=== PATIENT | male | born 1955 | race Caucasian/White ===

== ENCOUNTER 2018-03-23 14:47 | Observation (INO) ==
[2018-03-23 15:40] LABS: Chloride 106 meq/L (98-107); Potassium 3.6 meq/L (3.5-5.1); Sodium 141 meq/L (136-145)
[2018-03-23 15:44] LABS: Albumin 3.4 g/dL (3.4-5.0); Anion Gap 10 meq/L (5-15); Calcium 8.3 mg/dL (8.5-10.1); Carbon Dioxide 25.4 meq/L (21.0-32.0); Glucose,Random 85 mg/dL (74-106)
[2018-03-23 15:45] LABS: Blood Urea Nitrogen 12 mg/dL (7-18)
[2018-03-23 15:46] LABS: INR 1.2 Ratio; Prothrombin Time 11.7 sec (9.8-11.6)
[2018-03-23 15:47] LABS: Alanine Aminotransferase 42 U/L (12-78); Aspartate Aminotransferase 43 U/L (15-37); Glomerular Filtration Rate 47 mL/min (>89)
[2018-03-23 15:49] LABS: Total Protein 6.9 g/dL (6.4-8.2)
[2018-03-23 15:50] LABS: Alkaline Phosphatase 85 U/L (45-117)
[2018-03-23 15:51] LABS: Baso % (Auto) 0.4 % (0.0-2.0); Eos # (Auto) 0.1 th/mm3 (0.0-0.4); Eos % (Auto) 2.4 % (0.0-4.0); Hematocrit 38.3 % (39.0-51.0); Hemoglobin 12.5 gm/dL (13.0-17.0); Lymph # (Auto) 0.6 th/mm3 (1.0-4.8); Lymph % (Auto) 14.3 % (9.0-44.0); Mean Corpuscular HGB Conc 32.7 % (32.0-36.0); Mean Corpuscular Hemoglobin 28.9 pg (27.0-34.0); Mean Corpuscular Volume 88.5 fL (80.0-100.0); Mean Platelet Volume 6.9 fL (7.0-11.0); Mono # (Auto) 0.4 th/mm3 (0.0-0.9); Mono % (Auto) 9.3 % (0.0-8.0); Neut # (Auto) 3.4 th/mm3 (1.8-7.7); Neut % (Auto) 73.6 % (16.0-70.0); Platelet Count 198 th/mm3 (150-450); Red Blood Count 4.32 mil/mm3 (4.50-5.90); Red Cell Distribution Width 14.6 % (11.6-17.2); White Blood Count 4.5 th/mm3 (4.0-11.0)
--- NOTE | 2018-03-23 15:55 | CT ---
EXAM DATE: 03/23/2018 3:52 PM EDT AGE/SEX: 62 years / Male INDICATIONS: Trauma. Dizziness and seizure like activity today. CLINICAL DATA: This is the patient's initial encounter. Patient reports that signs and symptoms have been present for 1 day and indicates a pain score of 0/10. MEDICAL/SURGICAL HISTORY: Diabetes mellitus type II. Hypertension. CABG. RADIATION DOSE: 64.31 CTDI (mGy) COMPARISON: No prior exams available for comparison. TECHNIQUE: CT of the head without contrast. Using automated exposure control and adjustment of the mA and/or kV according to patient size, radiation dose was kept as low as reasonably achievable to ob tain optimal diagnostic quality images. DICOM format image data is available electronically for revi ew and comparison. FINDINGS: Cerebrum: The ventricles are normal for age. No evidence of midline shift, mass lesion, hemorrhage or acute infarction. No extraaxial fluid collections are seen. Posterior Fossa: The cerebellum and brainstem are intact. The 4th ventricle is midline. The cerebe llopontine angle is unremarkable. Extracranial: The visualized portion of the orbits is intact. Skull: The calvaria is intact. No evidence of skull fracture. CONCLUSION: 1. Negative CT Head non contrast. . Electronically signed by: Vicky Nieves MD 03/23/2018 3:53 PM EDT
--- NOTE | 2018-03-23 16:10 | CT ---
EXAM DATE: 03/23/2018 4:00 PM EDT AGE/SEX: 62 years / Male INDICATIONS: Trauma. Dizziness with seizure like activity today. CLINICAL DATA: This is the patient's initial encounter. Patient reports that signs and symptoms have been present for 1 day and indicates a pain score of 0/10. MEDICAL/SURGICAL HISTORY: Hypertension. Diabetes mellitus type II. CABG. RADIATION DOSE: 26.64 CTDI (mGy) COMPARISON: No prior exams available for comparison. TECHNIQUE: Contiguous axial images were obtained using helical multirow detector technique. The vol umetric data was post-processed with multiplanar reconstruction in oblique axial, sagittal, and coron al planes. Using automated exposure control and adjustment of the mA and/or kV according to patient s ize, radiation dose was kept as low as reasonably achievable to obtain optimal diagnostic quality luciano ges. DICOM format image data is available electronically for review and comparison. FINDINGS: Vertebrae: Normal vertebral body height. Alignment: There is loss of the normal cervical lordosis with overall straightening of the cervical spine. C2-3: Uncovertebral joint hypertrophy and moderate bilateral facet degenerative change. Moderate enriqueta ateral neuroforaminal stenosis. C3-4: The bony spinal canal is normal in size. No evidence of disc bulge or herniation. The neural foramina are bilaterally patent. C4-5: Disc desiccation and disc space narrowing. Uncovertebral joint hypertrophy and mild facet dege nerative change. Moderate to severe bilateral neuroforaminal stenosis. There is a calcified posterior osteophyte projecting into the left aspect of the spinal canal without causing significant narrowing . C5-6: Disc desiccation and disc space narrowing with a small posterior calcified disc osteophyte com plex and uncovertebral joint hypertrophy. Mild bilateral neuroforaminal narrowing. C6-7: Disc desiccation and disc space narrowing with posterior disc osteophyte complex and uncoverte bral joint hypertrophy. Mild bilateral neuroforaminal narrowing. C7-T1: Severe degenerative changes at the right facet joints. CONCLUSION: 1. No acute abnormality noted. Degenerative changes as noted above. Electronically signed by: Vicky Nieves MD 03/23/2018 4:09 PM EDT
[2018-03-23 16:13] LABS: Bilirubin,Urine Negative (Negative); Clarity,Urine Clear (Clear); Color,Urine Yellow (Yellw/Straw); Glucose,Urine (UA) Negative (Negative); Leukocyte Esterase,Urine Negative (Negative); Nitrite,Urine Negative (Negative); PH,Urine 5.5 (5.0-8.5); Urobilinogen,Urine 0.2 mg/dL (Less than 2)
[2018-03-23 16:30] LABS: Collection Time,Urine 1540 hours; WBC,Urine 0-5 /hpf (0-5)
--- NOTE | 2018-03-23 16:53 | ED ---
HPI General Chief complaint: Seizure Stated complaint: Evac/seizures History of Present Illness HPI narrative: Patient is a 62 year old male history of DM and CABGx4 presents to the ER for evaluation after "seizure". patient states he was out returning a television when he felt very weak and like he was going to pass out. Then he lowered himself to the ground and the next thing he knew the paramedics were over him. EMS described that the patient was posturing initially and was having tonic clonic movements for approximately 3 minutes. Patient does not recall this. No history of previous seizures. No chest pain, no sob, no n/v/d , no palpitations. Patient states this has never happened to him before. BGL by ems was 78. Patient states he was feeling dizzy on and off all day today. Related Data Home Medications Medication Instructions Recorded Confirmed aspirin [Aspir-Low] 81 mg PO DAILY 03/23/18 03/23/18 atenolol 25 mg PO DAILY 03/23/18 03/23/18 atorvastatin 40 mg PO DAILY 03/23/18 03/23/18 losartan 25 mg PO DAILY 03/23/18 03/23/18 kcnfnnxazgdi-oqd-ijua-FA-vit K 1 tab PO DAILY 03/23/18 03/23/18 [Multi-Day Plus Minerals] vitamin B complex 1 cap PO DAILY 03/23/18 03/23/18 Previous Rx's Medication Instructions Recorded furosemide 10 mg PO DAILY #30 tab 03/24/18 gabapentin 200 mg PO TID 30 Days #180 cap 03/24/18 metformin 500 mg PO DAILY #30 tab 03/24/18 Allergies Allergy/AdvReac Type Severity Reaction Status Date / Time No Known Allergies Allergy Unverified 03/23/18 14:49 Review of Systems ROS: all other systems reviewed are negative [facility] Medical History Medical History Diabetes (Acute) History of diabetic neuropathy (Acute) History of high cholesterol (Acute) History of hypertension (Acute) Surgical History Surgical History Hx of CABG (Acute) Social History Social History Substance History: No History of Abuse Second Hand Smoke Exposure: Yes Smoking Status: Former smoker How Often Do You Have a Drink Containing Alcohol: 2 to 4 times a month Recent Travel in [facility] within the Last 8 Weeks: No Recent Out of Country Travel within the Last 8 Weeks: No Immunization History Tetanus Immunization: Unsure Hx Influenza Vaccine This Season: No Exam Narrative Exam Narrative: GENERAL: WD/WN overweight pleasant male in NAD. SKIN: Focused skin assessment warm/dry. Healed vein harvesting scars on RLE. Sternotomy scar. Both well healed. HEAD: Atraumatic. Normocephalic. EYES: Pupils equal and round. No scleral icterus. No injection or drainage. ENT: No nasal bleeding or discharge. Mucous membranes pink and moist. NECK: Trachea midline. No JVD. CARDIOVASCULAR: Regular rate and rhythm. No murmur appreciated. RESPIRATORY: No accessory muscle use. Clear to auscultation. Breath sounds equal bilaterally. GASTROINTESTINAL: Abdomen soft, non-tender, nondistended. Hepatic and splenic margins not palpable. MUSCULOSKELETAL: No obvious deformities. No clubbing. No cyanosis. No edema. NEUROLOGICAL: Awake and alert. CN 2-12 grossly intact and non-focal. 5/5 strength in all four extremities. Cerebellar testing normal. PSYCHIATRIC: Appropriate mood and affect; insight and judgment normal. Course Initial Documented Vital Signs Temperature 99.1 F 03/23/18 14:53 Pulse Rate 93 H 03/23/18 14:53 Respiratory Rate 16 03/23/18 14:53 Blood Pressure 140/70 03/23/18 14:53 Pulse Oximetry 100 03/23/18 14:53 Last Documented Vital Signs Temperature 97.8 F 03/24/18 12:00 Pulse Rate 68 03/24/18 12:00 Respiratory Rate 16 03/24/18 12:00 Blood Pressure 126/66 03/24/18 12:00 Pulse Oximetry 97 03/24/18 12:00 Medical Decision Making MDM Narrative Medical decision making narrative: Patient roomed in ER, certainly not postictal on arrival. Syncope vs seizure predominate. Arrythmia is a possibility as well. Initial workup in ed, EKG, CXR, ct head, ct cervspine, CBC , CMP, Trop all negative. Discussed observation status for consideration of EEG , Echo, cardiac monitoring. Patient agreeable. Medical Screen Exam Complete: Yes Emergency Medical Condition: Yes Differential Diagnosis Differential Diagnosis: Seizure, arrhythmia, CHF, electrolyte abnormality, head injury, neck injury. Lab Data Result diagrams: 03/23/18 15:25 03/23/18 15:25 Lab Results 03/23/18 03/23/18 03/23/18 Range/Units 15:25 15:25 15:25 CBC w Diff Auto diff final WBC 4.5 (4.0-11.0) th/mm3 RBC 4.32 L (4.50-5.90) mil/mm3 Hgb 12.5 L (13.0-17.0) gm/dL Hct 38.3 L (39.0-51.0) % MCV 88.5 (80.0-100.0) fL MCH 28.9 (27.0-34.0) pg MCHC 32.7 (32.0-36.0) % RDW 14.6 (11.6-17.2) % Plt Count 198 (150-450) th/mm3 MPV 6.9 L (7.0-11.0) fL Neut % (Auto) 73.6 H (16.0-70.0) % Lymph % (Auto) 14.3 (9.0-44.0) % [place] % (Auto) 9.3 H (0.0-8.0) % Eos % (Auto) 2.4 (0.0-4.0) % Baso % (Auto) 0.4 (0.0-2.0) % Neut # (Auto) 3.4 (1.8-7.7) th/mm3 Lymph # (Auto) 0.6 L (1.0-4.8) th/mm3 [place] # (Auto) 0.4 (0.0-0.9) th/mm3 Eos # (Auto) 0.1 (0.0-0.4) th/mm3 Baso # (Auto) 0.0 (0.0-0.2) th/mm3 WBC Differential . Differential Comment . PT 11.7 H (9.8-11.6) sec INR 1.2 Ratio APTT 25.0 (24.3-30.1) sec Sodium 141 (136-145) meq/L Potassium 3.6 (3.5-5.1) meq/L Chloride 106 (98-107) meq/L Carbon Dioxide 25.4 (21.0-32.0) meq/L Anion Gap 10 (5-15) meq/L BUN 12 (7-18) mg/dL Creatinine 1.50 H (0.60-1.30) mg/dL Estimated GFR 47 L (>89) mL/min POC Glucose (68-110) mg/dl Random Glucose 85 (74-106) mg/dL Calcium 8.3 L (8.5-10.1) mg/dL Total Bilirubin 0.4 (0.2-1.0) mg/dL AST 43 H (15-37) U/L ALT 42 (12-78) U/L Alkaline Phosphatase 85 (45-117) U/L Troponin I Less than 0.02 L (0.02-0.05) ng/mL Total Protein 6.9 (6.4-8.2) g/dL Albumin 3.4 (3.4-5.0) g/dL Ur Collection Type Urine Color (Yellw/Straw) Urine Clarity (Clear) Urine pH (5.0-8.5) Ur Specific [place] (1.002-1.035) Urine Protein (Neg-Trace) mg/dL Urine Glucose (UA) (Negative) mg/dL Urine Ketones (Negative) mg/dL Urine Occult Blood (Negative) Urine Nitrate (Negative) Urine Bilirubin (Negative) Urine Urobilinogen (Less than 2) mg/dL Ur Leukocyte Esterase (Negative) Urine WBC (0-5) /hpf Ur Microscopic Review Urine Culture Comments Urine Collection Time hours 03/23/18 03/23/18 03/24/18 Range/Units 15:40 19:45 07:14 CBC w Diff WBC (4.0-11.0) th/mm3 RBC (4.50-5.90) mil/mm3 Hgb (13.0-17.0) gm/dL Hct (39.0-51.0) % MCV (80.0-100.0) fL MCH (27.0-34.0) pg MCHC (32.0-36.0) % RDW (11.6-17.2) % Plt Count (150-450) th/mm3 MPV (7.0-11.0) fL Neut % (Auto) (16.0-70.0) % Lymph % (Auto) (9.0-44.0) % [place] % (Auto) (0.0-8.0) % Eos % (Auto) (0.0-4.0) % Baso % (Auto) (0.0-2.0) % Neut # (Auto) (1.8-7.7) th/mm3 Lymph # (Auto) (1.0-4.8) th/mm3 [place] # (Auto) (0.0-0.9) th/mm3 Eos # (Auto) (0.0-0.4) th/mm3 Baso # (Auto) (0.0-0.2) th/mm3 WBC Differential Differential Comment PT (9.8-11.6) sec INR Ratio APTT (24.3-30.1) sec Sodium (136-145) meq/L Potassium (3.5-5.1) meq/L Chloride (98-107) meq/L Carbon Dioxide (21.0-32.0) meq/L Anion Gap (5-15) meq/L BUN (7-18) mg/dL Creatinine (0.60-1.30) mg/dL Estimated GFR (>89) mL/min POC Glucose 86 (68-110) mg/dl Random Glucose (74-106) mg/dL Calcium (8.5-10.1) mg/dL Total Bilirubin (0.2-1.0) mg/dL AST (15-37) U/L ALT (12-78) U/L Alkaline Phosphatase (45-117) U/L Troponin I Less than 0.02 L (0.02-0.05) ng/mL Total Protein (6.4-8.2) g/dL Albumin (3.4-5.0) g/dL Ur Collection Type Clean catch Urine Color Yellow (Yellw/Straw) Urine Clarity Clear (Clear) Urine pH 5.5 (5.0-8.5) Ur Specific [place] 1.020 (1.002-1.035) Urine Protein Negative (Neg-Trace) mg/dL Urine Glucose (UA) Negative (Negative) mg/dL Urine Ketones Negative (Negative) mg/dL Urine Occult Blood Negative (Negative) Urine Nitrate Negative (Negative) Urine Bilirubin Negative (Negative) Urine Urobilinogen 0.2 (Less than 2) mg/dL Ur Leukocyte Esterase Negative (Negative) Urine WBC 0-5 (0-5) /hpf Ur Microscopic Review Microscopic reviewed Urine Culture Comments Culture not ind Urine Collection Time 1540 hours Imaging Data Radiologist's impression: Cervical Spine CT 03/23/18 15:18 CONCLUSION: 1. No acute abnormality noted. Degenerative changes as noted above. Head CT 03/23/18 15:18 CONCLUSION: 1. Negative CT Head non contrast. . Discharge Plan Discharge Disposition Patient Disposition: 01 Discharge Home Discharge Condition Condition: Stable Discharge Order Discharge Orders: Discharge Order (Routine); Ordered 03/24/18 Ordered By: Margarito Salazar Discharge Details Anticipated Discharge Date: 03/24/18 Discharge Comment: Stop Glimepiride and start Metformin 500mg once a day. Discuss diabetic meds with your Marketing Services Rep. Check and keep a log of blood glucose twice a day and show it to your Marketing Services Rep. Diagnosis: Syncope Physicians Team ED Provider: Ruddy Tejeda Primary Care Provider: Tamara Patel Attending Provider: Margarito Salazar Status ED Status: Left Department Discharge Information Discharge Date/Time: 03/23/18 19:02
[2018-03-23] MEDS ORDERED: Bisacodyl 10 MG Supp RECTAL PRN (17:24)
[2018-03-23] MEDS ORDERED: Acetaminophen 325 MG Tablet PO PRN (17:30)
--- NOTE | 2018-03-24 12:39 | P.HP ---
History of Present Illness Service: Hospitalist Primary Care Physician: Tamara Patel MD Chief Complaint: Syncope History of Present Illness: Mr. Davis is a pleasant 62-year-old male with a history of CAD status post CABG 4, diabetes mellitus who presented to the emergency department on 03/23/2018 after he had a couple episodes at a store. Patient recently bought his first house and has been overwhelmed due to his new house. He reports that he has not been eating or drinking well. At the store yesterday , he felt dizzy and lightheadedness. He does not remember much after that. He remembers waking up in the ambulance. He denies any loss of bowel or bladder control. No tongue biting. He was mildly confused after this episode. He denies any chest pain, shortness of breath, fever or chills. No changes in bowel or bladder habits. At the time of this interview on 03/24/2018, patient reports feeling well and back to his baseline. He is able to ambulate well without any symptoms. Past medical history: CAD status post CABG 4, diabetes mellitus, hypertension, hyperlipidemia Past surgical history: CABG 4 Social history: He quit smoking in 2015. He drinks socially. Family history: Father had heart disease. - Diagnosis (1) Syncope Review of Systems All other systems reviewed negative except as stated in [facility] - History History Provided By: Patient - Medical History Medical History: Medical History (Last Updated 03/23/18 @ 14:53 by Stephanie Gilmore RN) Diabetes History of diabetic neuropathy History of high cholesterol History of hypertension - Surgical History Surgical History: Surgical History (Last Updated 03/23/18 @ 14:53 by Stephanie Gilmore RN) Hx of CABG - Tobacco History Second Hand Smoke Exposure: Yes Tobacco Use In Past 30 Days: No Smoking Status: Former smoker - Alcohol History How Often Do You Have a Drink Containing Alcohol: 2 to 4 times a month - Substance Use History Substance History: No History of Abuse - Travel History Recent Travel in the [place] Within the Last 8 Weeks: No Recent Travel Out of the Country Within the Last 8 Weeks: No - Immunization History Tetanus Immunization: Unsure Hx Influenza Vaccine This Season: No Medications and Allergies Active Medications: Active Medications Acetaminophen (Tylenol) 650 mg PO Q4H PRN PRN Reason: Headache, fever, pain 1-5 Al Hydroxide/Mg Hydroxide (Milk Of Jorge Escobedoq) 30 ml PO Q12H PRN PRN Reason: Mild Constipation Bisacodyl (Dulcolax Supp) 10 mg RECTAL DAILY PRN PRN Reason: SEVERE CONSITIPATION Lactulose (Lactulose Liq) 30 ml PO DAILY PRN PRN Reason: SEVERE CONSITIPATION Sennosides (Senokot) 17.2 mg PO Q12H PRN PRN Reason: Moderate Constipation Allergies Allergy/AdvReac Type Severity Reaction Status Date / Time No Known Allergies Allergy Unverified 03/23/18 14:49 Home Medications Medication Instructions Recorded Confirmed Type aspirin [Aspir-Low] 81 mg PO DAILY 03/23/18 03/23/18 History atenolol 25 mg PO DAILY 03/23/18 03/23/18 History atorvastatin 40 mg PO DAILY 03/23/18 03/23/18 History losartan 25 mg PO DAILY 03/23/18 03/23/18 History ftyrzhueclkq-utv-ucan-FA-vit K 1 tab PO DAILY 03/23/18 03/23/18 History [Multi-Day Plus Minerals] vitamin B complex 1 cap PO DAILY 03/23/18 03/23/18 History Exam Vital signs: Vital Signs 03/23/18 14:53 03/23/18 14:59 03/23/18 15:30 Temperature 99.1 F Pulse Rate 93 H 72 Respiratory Rate 16 18 Blood Pressure 140/70 140/65 Pulse Oximetry 100 95 95 03/23/18 16:57 03/23/18 20:00 03/24/18 00:00 Temperature 96.4 F L 97.1 F L Pulse Rate 70 69 70 Respiratory Rate 18 18 18 Blood Pressure 123/65 108/55 L 103/50 L Pulse Oximetry 98 98 98 03/24/18 04:00 03/24/18 08:00 Temperature 98.4 F 96.5 F L Pulse Rate 60 64 Respiratory Rate 18 17 Blood Pressure 118/56 L 129/68 Pulse Oximetry 100 98 Intake & Output 03/23/18 03/24/18 03/24/18 18:59 06:59 18:59 Weight 117.934 kg 117.9 kg Other: # Voids 2 Weight On Admission 117.934 kg Narrative: GENERAL: This is a well-nourished, well-developed patient, in no apparent distress. SKIN: No rashes, ecchymoses or lesions. Warm and dry. HEAD: Atraumatic. Normocephalic. No temporal or scalp tenderness. EYES: Pupils equal round and reactive. No injection or drainage. ENT: Nose without bleeding, purulent drainage or septal hematoma. Airway patent. NECK: Trachea midline. No lymphadenopathy. Supple, nontender, no meningeal signs. CARDIOVASCULAR: Regular rate and rhythm without murmurs, gallops, or rubs. No JVD. RESPIRATORY: Clear to auscultation. Breath sounds equal bilaterally. No wheezes , rales, or rhonchi. GASTROINTESTINAL: Abdomen soft, non-tender, nondistended. No guarding. MUSCULOSKELETAL: Extremities without clubbing, cyanosis, or edema. NEUROLOGICAL: Awake and alert. Cranial nerves II through XII intact. No focal neurological deficits. Normal speech. Results - Labs CBC & Chem 7: 03/23/18 15:25 03/23/18 15:25 Labs: Laboratory Results - last 24 hr 03/23/18 03/23/18 03/23/18 15:25 15:25 15:25 CBC w Diff Auto diff final WBC 4.5 RBC 4.32 L Hgb 12.5 L Hct 38.3 L MCV 88.5 MCH 28.9 MCHC 32.7 RDW 14.6 Plt Count 198 MPV 6.9 L Neut % (Auto) 73.6 H Lymph % (Auto) 14.3 [place] % (Auto) 9.3 H Eos % (Auto) 2.4 Baso % (Auto) 0.4 Neut # (Auto) 3.4 Lymph # (Auto) 0.6 L [place] # (Auto) 0.4 Eos # (Auto) 0.1 Baso # (Auto) 0.0 WBC Differential . Differential Comment . PT 11.7 H INR 1.2 APTT 25.0 Sodium 141 Potassium 3.6 Chloride 106 Carbon Dioxide 25.4 Anion Gap 10 BUN 12 Creatinine 1.50 H Estimated GFR 47 L POC Glucose Random Glucose 85 Calcium 8.3 L Total Bilirubin 0.4 AST 43 H ALT 42 Alkaline Phosphatase 85 Troponin I Less than 0.02 L Total Protein 6.9 Albumin 3.4 Ur Collection Type Urine Color Urine Clarity Urine pH Ur Specific [place] Urine Protein Urine Glucose (UA) Urine Ketones Urine Occult Blood Urine Nitrate Urine Bilirubin Urine Urobilinogen Ur Leukocyte Esterase Urine WBC Ur Microscopic Review Urine Culture Comments Urine Collection Time 03/23/18 03/23/18 03/24/18 15:40 19:45 07:14 CBC w Diff WBC RBC Hgb Hct MCV MCH MCHC RDW Plt Count MPV Neut % (Auto) Lymph % (Auto) [place] % (Auto) Eos % (Auto) Baso % (Auto) Neut # (Auto) Lymph # (Auto) [place] # (Auto) Eos # (Auto) Baso # (Auto) WBC Differential Differential Comment PT INR APTT Sodium Potassium Chloride Carbon Dioxide Anion Gap BUN Creatinine Estimated GFR POC Glucose 86 Random Glucose Calcium Total Bilirubin AST ALT Alkaline Phosphatase Troponin I Less than 0.02 L Total Protein Albumin Ur Collection Type Clean catch Urine Color Yellow Urine Clarity Clear Urine pH 5.5 Ur Specific [place] 1.020 Urine Protein Negative Urine Glucose (UA) Negative Urine Ketones Negative Urine Occult Blood Negative Urine Nitrate Negative Urine Bilirubin Negative Urine Urobilinogen 0.2 Ur Leukocyte Esterase Negative Urine WBC 0-5 Ur Microscopic Review Microscopic reviewed Urine Culture Comments Culture not ind Urine Collection Time 1540 - Imaging Impressions Cervical Spine CT 03/23/18 15:18 CONCLUSION: 1. No acute abnormality noted. Degenerative changes as noted above. Head CT 03/23/18 15:18 CONCLUSION: 1. Negative CT Head non contrast. . Caprini VTE Risk Assessment Caprini VTE Risk Assessment: No/Low Risk (score <= 1) Caprini Risk Assessment Model: Point Value = 1 Point Value = 2 Point Value = 3 Point Value = 5 Age 41-60 Minor surgery BMI > 25 kg/m2 Swollen legs Varicose veins or History of unexplained or recurrent spontaneous Oral contraceptives or hormone replacement Sepsis (< 1 month) Serious lung disease, including pneumonia (< 1 month) Abnormal pulmonary function Acute myocardial infarction Congestive heart failure (< 1 month) History of inflammatory bowel disease Medical patient at bed rest Age 61-74 Arthroscopic surgery Major open surgery (> 45 min) Laparoscopic surgery (> 45 min) Malignancy Confined to bed (> 72 hours) Immobilizing plaster cast Central venous access Age >= 75 History of VTE Family history of VTE Factor V Leiden Prothrombin [id number] Lupus anticoagulant Anticardiolipin antibodies Elevated serum homocysteine Heparin-induced thrombocytopenia Other congenital or acquired thrombophilia Stroke (< 1 month) Elective arthroplasty Hip, pelvis, or leg fracture Acute spinal cord injury (< 1 month) Prophylaxis Regimen: Total Risk Factor Score Risk Level Prophylaxis Regimen 0-1 Low Early ambulation 2 Moderate Order ONE of the following: *Sequential Compression Device (SCD) *Heparin 5000 units SQ BID 3-4 Higher Order ONE of the following medications: *Heparin 5000 units SQ TID *Enoxaparin/Lovenox 40 mg SQ daily (WT < 150 kg, CrCl > 30 mL/min) *Enoxaparin/Lovenox 30 mg SQ daily (WT < 150 kg, CrCl > 10-29 mL/min) *Enoxaparin/Lovenox 30 mg SQ BID (WT < 150 kg, CrCl > 30 mL/min) AND/OR *Sequential Compression Device (SCD) 5 or more Highest Order ONE of the following medications: *Heparin 5000 units SQ TID (Preferred with Epidurals) *Enoxaparin/Lovenox 40 mg SQ daily (WT < 150 kg, CrCl > 30 mL/min) *Enoxaparin/Lovenox 30 mg SQ daily (WT < 150 kg, CrCl > 10-29 mL/min) *Enoxaparin/Lovenox 30 mg SQ BID (WT < 150 kg, CrCl > 30 mL/min) AND *Sequential Compression Device (SCD) Assessment and Plan - Assessment (1) Syncope Code(s): R55 - Syncope and collapse Status: Acute - Plan Mr. Davis is a pleasant 62-year-old male with a history of CAD, diabetes mellitus who presented to the emergency department on 03/23/2018 due to a syncopal episode at a store. Syncope -Likely vasovagal. Patient is currently is asymptomatic. -Poor oral intake as well as Lasix 20 mg daily are probably the reasons for the syncopal episode. Diabetes mellitus -Patient follows up with an outpatient hip hop dance instructor. -His creatinine is 1.5 but GFR 47. -I believe it would be safer for him to be on metformin then sulfonylureas. -We will DC self-injurious for now and start him on metformin 500 mg daily. -Patient has an appointment with his hip hop dance instructor on 03/30/2018. -Advised patient to keep a log of his blood glucose until he sees his hip hop dance instructor. CAD status post CABG 4 in 2015 Hypertension Hyperlipidemia -Continue home medications. Will reduce Lasix to 10 mg daily. Full code. Ambulation. Discharge patient to home Condition on discharge: Improved Diabetic diet as tolerated Ad Christin activity Rx written: Gabapentin reduced to 200 mg p.o. 3 times daily Metformin 500 mg extended release every 24 hours. Furosemide 10 mg daily. Follow-up with primary care physician within 1-2 weeks. Laundry Technician appointment on 03/30/2018.
--- NOTE | 2018-03-24 13:11 | ECG ---
Date Performed: 03/23/2018 Time Performed: 19:42:15 PTAGE: 62 years EKG: Sinus rhythm POSSIBLE INFERIOR MYOCARDIAL INFARCTION BORDERLINE ECG PREVIOUS TRACING : 03/23/2018 15.42 DOCTOR: Og Michele Interpretating Date/Time 03/24/2018 13:07:00
--- NOTE | 2018-03-24 13:19 | ECG ---
Date Performed: 03/23/2018 Time Performed: 15:42:27 PTAGE: 62 years EKG: Sinus rhythm POSSIBLE INFERIOR MYOCARDIAL INFARCTION BORDERLINE ECG NO PREVIOUS TRACING DOCTOR: Og Michele Interpretating Date/Time 03/24/2018 13:15:55
== END 2018-03-24 12:30 | disposition home or self-care (01) ==
LOC: PHED 14:47 → PHEDA 14:47 → PH3 19:06
PROVIDERS: ADMIT Hospitalist; ATTEND Hospitalist